=== PATIENT | female | born 1970 | race Two or more races ===

== ENCOUNTER 2019-08-30 00:16 | Inpatient (IN) | payer OTHER ==
[~2019-08-30] VITALS: Ht 165.1 cm; Wt 79.1 kg
[2019-08-30] VITALS (8 sets, daily range): BP systolic 110–140; BP diastolic 62–100
[~2019-08-30 00:16] MED LIST: PREN1TAB52 PO
[2019-08-30] MEDS ORDERED: FURO40 PO (00:26)
[2019-08-30] MEDS ORDERED: KDUR20 PO (00:26)
[2019-08-30] MEDS ORDERED: LORA-1000 PO (00:26)
[2019-08-30] MEDS ORDERED: RIVA20TA PO (00:26)
[2019-08-30 01:19] LABS: ANION GAP 8 mmol/L (8-16); CALCIUM, TOTAL 8.9 mg/dL (8.8-10.5); CARBON DIOXIDE 28 mmol/L (22-29); CHLORIDE 105 mmol/L (98-107); CREATININE 1.34 mg/dL (0.60-1.30); GLOMERULAR FILTR. RATE CALC 42 mL/min (>60); GLUCOSE,RANDOM 82 mg/dL (70-110); POTASSIUM 3.7 mmol/L (3.5-5.1); SODIUM SERUM 141 mmol/L (136-145); UREA NITROGEN, BLOOD 29 mg/dL (7-18)
[2019-08-30 01:23] LABS: INR 2.3 (0.9-1.1); PROTHROMBIN TIME 23.7 SEC (9.4-11.6)
[2019-08-30 01:40] LABS: B-TYPE NATRIURETIC PEPTIDE 848 pg/mL (0-100)
[2019-08-30 01:45] LABS: ALANINE AMINOTRANSFERASE 44 U/L (12-78); ALKALINE PHOSPHATASE 116 U/L (46-116); ASPARTATE AMINOTRANSFERASE 71 U/L (15-37); BILIRUBIN,TOTAL 1.5 mg/dL (0.1-1.0); CREATINE KINASE, TOTAL ONLY 207 U/L (26-192); HCG,QUANTITATIVE < 1 mIU/mL (0-6); TOTAL PROTEIN, SERUM 7.3 g/dL (6.4-8.2)
[2019-08-30] MEDS ORDERED: LORazepam 1 MG TABLET PO ONE (02:00)
[2019-08-30 02:01] LABS: APPEARANCE,URINE CLOUDY (CLEAR); BILIRUBIN,URINE NEGATIVE (NEGATIVE); GLUCOSE, URINE (UA) NEGATIVE (NEGATIVE); KETONES,URINE NEGATIVE (NEGATIVE); LEUKOCYTE ESTERASE ,URINE SMALL (NEGATIVE); NITRATE,URINE NEGATIVE (NEGATIVE); OCCULT BLOOD,URINE SMALL (NEGATIVE); PH,URINE 6.5 (5.0-8.0); PROTEIN,URINE POS 1+ (NEGATIVE)
[2019-08-30 02:12] LABS: BACTERIA,URINE Few /HPF (None Seen); RBC,URINE 0-2 /HPF (0-2); SQUAMOUS EPITHELIAL CELL,UR Many /LPF (None Seen)
[2019-08-30] MEDS ORDERED: IOVERSOL 350 MG/ML 100 ML VIAL ONE (02:19)
[2019-08-30] MEDS ORDERED: SODIUM CHLORIDE 0.9% 100 ML ONE (02:20)
[2019-08-30 02:22] LABS: BASOPHILS % (AUTO) 1.4 % (0.0-2.0); EOSINOPHILS % (AUTO) 1.2 % (1.0-6.0); HEMATOCRIT 36.2 % (36-46); HEMOGLOBIN 11.1 g/dL (12.0-16.0); LYMPHOCYTES # (AUTO) 1.5 K/uL (1.0-4.8); LYMPHOCYTES % (AUTO) 20.8 % (22.0-44.0); MEAN CORPUSCULAR HEMOGLOBIN 22.3 pg (26.0-34.0); MEAN CORPUSCULAR HGB CONC 30.8 G/dL (31.0-37.0); MEAN CORPUSCULAR VOLUME 73 fL (80-100); MONOCYTES # (AUTO) 0.7 K/uL (0.1-1.0); MONOCYTES % (AUTO) 9.5 % (2.0-9.0); NEUTROPHILS % (AUTO) 67.1 % (40.0-70.0); RED BLOOD CELL COUNT(AUTO) 4.99 MIL/uL (4.00-5.20); RED CELL DISTRIBUTION WIDTH 45.7 % (11.5-14.5)
[2019-08-30 02:43] LABS: PLATELET MORPHOLOGY COMMENT GIANT PLTS PRESENT
[2019-08-30 02:45] LABS: PLATELET COUNT (AUTO) 444 K/uL (150-450)
[2019-08-30] MEDS ORDERED: HEPARIN SODIUM,PORCINE 5,000 UNITS/ML VIAL IVP PRN ×4 (04:30→11:30)
[2019-08-30] MEDS ORDERED: HEPARIN SODIUM 25000 UNITS/D5W 250 ML IV PRN ×2 (04:30)
[2019-08-30] MEDS ORDERED: HEPARIN SODIUM,PORCINE 5,000 UNITS/ML VIAL IVP ONE ×2 (04:30→04:45)
[2019-08-30] MEDS ORDERED: ACETAMINOPHEN 325 MG TABLET PO PRN (04:45)
[2019-08-30] MEDS ORDERED: ONDANSETRON HCL 4 MG/2 ML VIAL IVP PRN (04:45)
[2019-08-30] MEDS ORDERED: 0.9% SODIUM CHLORIDE 10 ML SYRINGE IVP PRN (04:45)
[2019-08-30] MEDS ORDERED: INFLUENZA VIRUS VACCINE QVS 2019-20 (3YR+)/PF 60 MCG/0.5 ML SYRINGE IM ONE (07:30)
[2019-08-30] MEDS ORDERED: PNEUMOCOCCAL VACCINE POLYVALENT 0.5 ML VIAL [PPSV23] IM ONE (07:30)
[2019-08-30] MEDS ORDERED: BISACODYL 10 MG RECTAL RECTAL SUPPOSITORY PR PRN (11:30)
[2019-08-30] MEDS ORDERED: ZOLPIDEM TARTRATE 5 MG TABLET PO PRN (11:30)
[2019-08-30] MEDS ORDERED: MORPHINE SULFATE 2 MG/ML SYRINGE IVP PRN (11:30)
[2019-08-30] MEDS ORDERED: MAGNESIUM HYDROXIDE SUSPENSION 30 ML UDCUP PO PRN (11:30)
[2019-08-30 11:31] LABS: BASOPHILS % (AUTO) 0.8 % (0.0-2.0); EOSINOPHILS % (AUTO) 2.4 % (1.0-6.0); HEMATOCRIT 32.7 % (36-46); HEMOGLOBIN 10.1 g/dL (12.0-16.0); LYMPHOCYTES # (AUTO) 2.2 K/uL (1.0-4.8); LYMPHOCYTES % (AUTO) 28.9 % (22.0-44.0); MEAN CORPUSCULAR HEMOGLOBIN 22.5 pg (26.0-34.0); MEAN CORPUSCULAR HGB CONC 30.9 G/dL (31.0-37.0); MEAN CORPUSCULAR VOLUME 73 fL (80-100); MONOCYTES # (AUTO) 0.9 K/uL (0.1-1.0); MONOCYTES % (AUTO) 11.2 % (2.0-9.0); NEUTROPHILS # (AUTO) 4.3 K/uL (1.8-7.7); NEUTROPHILS % (AUTO) 56.7 % (40.0-70.0); RED BLOOD CELL COUNT(AUTO) 4.48 MIL/uL (4.00-5.20); RED CELL DISTRIBUTION WIDTH 45.2 % (11.5-14.5)
[2019-08-30] MEDS: LORazepam 1 MG TABLET PO SCH ×2 (12:48→20:56)
[2019-08-30] MEDS: FUROSEMIDE 40 MG TABLET PO SCH (12:48)
[2019-08-30] MEDS: POTASSIUM CHLORIDE 20 MEQ ER TABLET PO SCH (12:48)
[2019-08-30 13:47] LABS: PLATELET COUNT (AUTO) 447 K/uL (150-450)
[2019-08-30 15:25] LABS: INR 1.8 (0.9-1.1); PROTHROMBIN TIME 18.1 SEC (9.4-11.6)
[2019-08-30] MEDS ORDERED: HEPARIN SODIUM,PORCINE 5,000 UNITS/ML VIAL SQ SCH (16:00)
[2019-08-30] MEDS: DOCUSATE SODIUM 100 MG CAPSULE PO SCH (20:56)
[2019-08-30] MEDS: HYDROCODONE/ACETAMINOPHEN 5-325 MG TABLET PO PRN (20:58)
[2019-08-31] VITALS: BP_SYST 117; BP_SYST 135; BP_DIAS 82; BP_DIAS 97
[2019-08-31 04:18] VITALS: BP 129/58
[2019-08-31] MEDS: ACETAMINOPHEN 325 MG TABLET PO PRN (04:42)
[2019-08-31] MEDS: HEPARIN SODIUM 25000 UNITS/D5W 250 ML IV PRN ×3 (05:54→16:48)
[2019-08-31 06:32] LABS: EOSINOPHILS % (AUTO) 1.1 % (1.0-6.0); HEMATOCRIT 33.4 % (36-46); HEMOGLOBIN 10.6 g/dL (12.0-16.0); LYMPHOCYTES # (AUTO) 1.6 K/uL (1.0-4.8); LYMPHOCYTES % (AUTO) 22.4 % (22.0-44.0); MEAN CORPUSCULAR HEMOGLOBIN 23.5 pg (26.0-34.0); MEAN CORPUSCULAR HGB CONC 31.7 G/dL (31.0-37.0); MEAN CORPUSCULAR VOLUME 74 fL (80-100); MONOCYTES # (AUTO) 0.6 K/uL (0.1-1.0); MONOCYTES % (AUTO) 8.6 % (2.0-9.0); NEUTROPHILS # (AUTO) 4.8 K/uL (1.8-7.7); NEUTROPHILS % (AUTO) 66.9 % (40.0-70.0); PLATELET COUNT (AUTO) 450 K/uL (150-450); RED BLOOD CELL COUNT(AUTO) 4.51 MIL/uL (4.00-5.20); RED CELL DISTRIBUTION WIDTH 45.5 % (11.5-14.5)
[2019-08-31 06:51] LABS: ALBUMIN 2.5 g/dL (3.4-5.0); BILIRUBIN,TOTAL 1.2 mg/dL (0.1-1.0); CALCIUM, TOTAL 8.1 mg/dL (8.8-10.5); CREATININE 0.98 mg/dL (0.60-1.30); POTASSIUM 3.7 mmol/L (3.5-5.1); TOTAL PROTEIN, SERUM 6.4 g/dL (6.4-8.2)
[2019-08-31 07:30] VITALS: BP 128/86
[2019-08-31] MEDS: FUROSEMIDE 40 MG TABLET PO SCH (08:16)
[2019-08-31] MEDS: POTASSIUM CHLORIDE 20 MEQ ER TABLET PO SCH (08:16)
[2019-08-31] MEDS: DOCUSATE SODIUM 100 MG CAPSULE PO SCH ×2 (08:16→20:32)
[2019-08-31] MEDS: PANTOPRAZOLE SODIUM 40 MG DR TABLET PO SCH (08:16)
[2019-08-31] MEDS: LORazepam 1 MG TABLET PO SCH ×2 (08:49→20:32)
[2019-08-31 11:14] VITALS: BP 126/82
[2019-08-31 12:09] LABS: MAGNESIUM 1.8 mg/dL (1.80-2.40); PHOSPHORUS 3.1 mg/dL (2.5-4.9)
[2019-08-31] MEDS: HYDROCORTISONE 1% 30 GM OINTMENT TP SCH ×2 (12:44→20:32)
[2019-08-31] MEDS ORDERED: *CLINICAL-WARFARIN SODIUM DOSING CLINICAL ONE (14:30)
[2019-08-31 16:22] LABS: INR 1.2 (0.9-1.1); PROTHROMBIN TIME 12.5 SEC (9.4-11.6)
[2019-08-31 16:30] VITALS: BP 114/81
[2019-08-31] MEDS ORDERED: WARFARIN SODIUM-INR 2.0-3.0-RX DOSING PER PROTOCOL PO PRN (16:45)
[2019-08-31] MEDS ORDERED: WARFARIN SODIUM 5 MG TABLET PO ONE (17:00)
[2019-08-31] MEDS: HYDROCODONE/ACETAMINOPHEN 5-325 MG TABLET PO PRN (17:17)
[2019-08-31 20:31] VITALS: BP 120/85
[2019-08-31] MEDS: ONDANSETRON HCL 4 MG/2 ML VIAL IVP PRN (22:40)
[2019-09-01] MEDS: ACETAMINOPHEN 325 MG TABLET PO PRN ×3 (00:03→22:15)
[2019-09-01 00:15] VITALS: BP 112/72
[2019-09-01 07:35] VITALS: BP 118/74
[2019-09-01] MEDS: PANTOPRAZOLE SODIUM 40 MG DR TABLET PO SCH (08:33)
[2019-09-01] MEDS: FUROSEMIDE 40 MG TABLET PO SCH (08:33)
[2019-09-01] MEDS: LORazepam 1 MG TABLET PO SCH ×2 (08:33→22:11)
[2019-09-01] MEDS: POTASSIUM CHLORIDE 20 MEQ ER TABLET PO SCH (08:34)
[2019-09-01] MEDS: DOCUSATE SODIUM 100 MG CAPSULE PO SCH ×2 (08:35→21:00)
[2019-09-01 08:55] LABS: INR 1.4 (0.9-1.1); PROTHROMBIN TIME 14.3 SEC (9.4-11.6)
[2019-09-01] MEDS: HYDROCORTISONE 1% 30 GM OINTMENT TP SCH ×2 (09:00→22:11)
[2019-09-01] MEDS: HEPARIN SODIUM 25000 UNITS/D5W 250 ML IV PRN (11:48)
[2019-09-01 11:50] VITALS: BP 128/74
[2019-09-01 15:48] VITALS: BP 122/80
[2019-09-01 15:57] LABS: OCCULT BLOOD,GASTRIC FLUID POSITIVE (NEGATIVE)
[2019-09-01] MEDS ORDERED: LOPERAMIDE HCL 2 MG CAPSULE PO PRN (16:30)
[2019-09-01] MEDS ORDERED: WARFARIN SODIUM 7.5 MG TABLET PO ONE (17:00)
[2019-09-01 17:02] LABS: INR 1.7 (0.9-1.1); PROTHROMBIN TIME 16.9 SEC (9.4-11.6)
[2019-09-01] MEDS: ONDANSETRON HCL 4 MG/2 ML VIAL IVP PRN (19:45)
[2019-09-01 20:20] VITALS: BP 123/61
[2019-09-01 23:33] VITALS: BP 116/71
[2019-09-02 04:14] VITALS: BP 111/77
[2019-09-02 06:55] LABS: INR 2.3 (0.9-1.1); PROTHROMBIN TIME 23.4 SEC (9.4-11.6)
[2019-09-02 07:41] VITALS: BP 126/87
[2019-09-02] MEDS: HYDROCORTISONE 1% 30 GM OINTMENT TP SCH (08:00)
[2019-09-02] MEDS: FUROSEMIDE 40 MG TABLET PO SCH (08:00)
[2019-09-02] MEDS: LORazepam 1 MG TABLET PO SCH (08:00)
[2019-09-02] MEDS: POTASSIUM CHLORIDE 20 MEQ ER TABLET PO SCH (08:00)
[2019-09-02] MEDS: PANTOPRAZOLE SODIUM 40 MG DR TABLET PO SCH (08:01)
[2019-09-02] MEDS: ACETAMINOPHEN 325 MG TABLET PO PRN (08:12)
[2019-09-02] MEDS: DOCUSATE SODIUM 100 MG CAPSULE PO SCH (08:16)
[2019-09-02] MEDS ORDERED: WARF5 PO (10:31)
[2019-09-10] MEDS ORDERED: SILD20TA2 PO (09:23)
== END 2019-09-02 12:05 | disposition home or self-care (01) | DRG 207 ==
LOC: EMS 00:17 → 5N 04:54
PROVIDERS: ADMIT Internal Medicine; ATTEND Internal Medicine
DX: I27.20 Pulmonary hypertension, unspecified (principal); I26.99 Other pulmonary embolism without acute cor pulmonale; I07.1 Rheumatic tricuspid insufficiency; I50.32 Chronic diastolic (congestive) heart failure; E78.5 Hyperlipidemia, unspecified; I49.3 Ventricular premature depolarization; J44.9 Chronic obstructive pulmonary disease, unspecified; F41.9 Anxiety disorder, unspecified; Z86.718 Personal history of other venous thrombosis and embolism; Z86.11 Personal history of tuberculosis; Z90.81 Acquired absence of spleen
CPT/HCPCS: 70450; 70486; 71275; 78582; 82271; 83735; 84100; 87081; 93005; 93306; 96365; 99291; J1644; J2270; J2405; J7050

== ENCOUNTER 2019-09-04 04:51 | Inpatient (IN) | payer OTHER ==
[~2019-09-04] VITALS: Ht 165.1 cm; Wt 83.4 kg
[~2019-09-04 04:51] MED LIST changes: +MAA ALBUMIN AGGREGATED TC99M/UD<10MCL ISOTOPE 1 EA INJ INJ ONE; +PENTETATE DTPA TC99M/MCL ISOTOPE 1 EA INJ INJ ONE; -PREN1TAB52 PO; +WARF5 PO
[2019-09-04] MEDS ORDERED: SODIUM CHLORIDE 0.9% 1,000 ML IV ONE (05:45)
[2019-09-04 06:01] LABS: BASOPHILS % (AUTO) 1.1 % (0.0-2.0); HEMOGLOBIN 10.6 g/dL (12.0-16.0); LYMPHOCYTES # (AUTO) 1.8 K/uL (1.0-4.8); LYMPHOCYTES % (AUTO) 23.5 % (22.0-44.0); MEAN CORPUSCULAR HEMOGLOBIN 22.9 pg (26.0-34.0); MEAN CORPUSCULAR HGB CONC 31.2 G/dL (31.0-37.0); MEAN CORPUSCULAR VOLUME 73 fL (80-100); MONOCYTES # (AUTO) 0.9 K/uL (0.1-1.0); MONOCYTES % (AUTO) 12.2 % (2.0-9.0); NEUTROPHILS # (AUTO) 4.6 K/uL (1.8-7.7); NEUTROPHILS % (AUTO) 61.2 % (40.0-70.0); PLATELET COUNT (AUTO) 374 K/uL (150-450); RED BLOOD CELL COUNT(AUTO) 4.65 MIL/uL (4.00-5.20); RED CELL DISTRIBUTION WIDTH 45.5 % (11.5-14.5)
[2019-09-04 06:14] LABS: INR 2.3 (0.9-1.1); PROTHROMBIN TIME 23.9 SEC (9.4-11.6)
[2019-09-04 06:16] LABS: CALCIUM, TOTAL 9.1 mg/dL (8.8-10.5); CREATININE 1.02 mg/dL (0.60-1.30); POTASSIUM 4.1 mmol/L (3.5-5.1)
[2019-09-04 06:21] LABS: ALBUMIN 2.8 g/dL (3.4-5.0); BILIRUBIN,TOTAL 1.2 mg/dL (0.1-1.0); TOTAL PROTEIN, SERUM 7.1 g/dL (6.4-8.2)
[2019-09-04] MEDS ORDERED: FURO40 PO (06:21)
[2019-09-04] MEDS ORDERED: ONDANSETRON HCL 4 MG/2 ML VIAL IVP ONE (06:45)
[2019-09-04] MEDS ORDERED: ACETAMINOPHEN 500 MG TABLET PO ONE (06:45)
[2019-09-04] MEDS ORDERED: PIPERACILLIN/TAZO 3.375 GM/D5W 50 ML IV ONE (07:30)
[2019-09-04] MEDS ORDERED: VANCOMYCIN HCL 1 GM/D5% WATER 200 ML IV ONE (07:30)
[2019-09-04] MEDS ORDERED: AZITHROMYCIN 500 MG/NS 250 ML IV ONE (07:30)
[2019-09-04] MEDS ORDERED: 0.9% SODIUM CHLORIDE 10 ML SYRINGE IVP PRN ×2 (08:30→08:45)
[2019-09-04] MEDS ORDERED: *CLINICAL-WARFARIN SODIUM DOSING CLINICAL ONE (08:30)
[2019-09-04] MEDS ORDERED: ACETAMINOPHEN 325 MG TABLET PO PRN ×2 (08:30→08:45)
[2019-09-04] MEDS ORDERED: BISACODYL 10 MG RECTAL RECTAL SUPPOSITORY PR PRN (08:45)
[2019-09-04] MEDS ORDERED: MAGNESIUM HYDROXIDE SUSPENSION 30 ML UDCUP PO PRN (08:45)
[2019-09-04] MEDS ORDERED: IPRATROPIUM BROMIDE 0.5 MG/2.5 ML NEB SOLUTION NEB PRN (08:45)
[2019-09-04] MEDS ORDERED: ALBUTEROL SULFATE 2.5 MG/0.5 ML NEB SOLUTION NEB PRN (08:45)
[2019-09-04] MEDS ORDERED: ONDANSETRON HCL 4 MG/2 ML VIAL IVP PRN (08:45)
[2019-09-04 10:33] VITALS: BP 117/78
[2019-09-04] MEDS: FUROSEMIDE 40 MG TABLET PO SCH (13:49)
[2019-09-04] MEDS: PANTOPRAZOLE SODIUM 40 MG DR TABLET PO SCH (13:49)
[2019-09-04] MEDS: LORazepam 1 MG TABLET PO SCH ×2 (14:44→21:40)
[2019-09-04 15:50] VITALS: BP 140/80
[2019-09-04] MEDS ORDERED: WARFARIN SODIUM 3 MG TABLET PO SCH (17:00)
[2019-09-04] MEDS ORDERED: WARFARIN SODIUM 5 MG TABLET PO SCH (17:00)
[2019-09-04] MEDS: OxyCODONE HCL/ACETAMINOPHEN 5-325 MG TABLET PO PRN (17:06)
[2019-09-04 19:36] VITALS: BP 120/82
[2019-09-04 23:26] VITALS: BP 106/47
[2019-09-05 05:24] VITALS: BP 108/75
[2019-09-05 06:40] LABS: BASOPHILS % (AUTO) 1.1 % (0.0-2.0); EOSINOPHILS % (AUTO) 3.5 % (1.0-6.0); HEMATOCRIT 32.3 % (36-46); HEMOGLOBIN 10.3 g/dL (12.0-16.0); LYMPHOCYTES # (AUTO) 1.7 K/uL (1.0-4.8); LYMPHOCYTES % (AUTO) 27.9 % (22.0-44.0); MEAN CORPUSCULAR HEMOGLOBIN 23.5 pg (26.0-34.0); MEAN CORPUSCULAR HGB CONC 31.9 G/dL (31.0-37.0); MEAN CORPUSCULAR VOLUME 74 fL (80-100); MONOCYTES # (AUTO) 0.9 K/uL (0.1-1.0); MONOCYTES % (AUTO) 13.9 % (2.0-9.0); NEUTROPHILS # (AUTO) 3.3 K/uL (1.8-7.7); NEUTROPHILS % (AUTO) 53.6 % (40.0-70.0); PLATELET COUNT (AUTO) 387 K/uL (150-450); RED BLOOD CELL COUNT(AUTO) 4.39 MIL/uL (4.00-5.20); RED CELL DISTRIBUTION WIDTH 46.2 % (11.5-14.5)
[2019-09-05 06:45] LABS: INR 2.4 (0.9-1.1); PROTHROMBIN TIME 24.8 SEC (9.4-11.6)
[2019-09-05 06:58] LABS: ALBUMIN 2.5 g/dL (3.4-5.0); BILIRUBIN,TOTAL 0.7 mg/dL (0.1-1.0); CALCIUM, TOTAL 8.6 mg/dL (8.8-10.5); CREATININE 1.03 mg/dL (0.60-1.30); POTASSIUM 3.8 mmol/L (3.5-5.1); TOTAL PROTEIN, SERUM 6.5 g/dL (6.4-8.2)
[2019-09-05] MEDS: OxyCODONE HCL/ACETAMINOPHEN 5-325 MG TABLET PO PRN ×2 (07:41→21:10)
[2019-09-05 07:51] VITALS: BP 126/76
[2019-09-05] MEDS: LORazepam 1 MG TABLET PO SCH ×3 (08:28→21:10)
[2019-09-05] MEDS: FUROSEMIDE 40 MG TABLET PO SCH (08:28)
[2019-09-05] MEDS: DOCUSATE SODIUM 100 MG CAPSULE PO PRN ×2 (08:28→21:09)
[2019-09-05] MEDS: PANTOPRAZOLE SODIUM 40 MG DR TABLET PO SCH (08:29)
[2019-09-05] MEDS: DOXYCYCLINE HYCLATE 100 MG CAPSULE PO SCH ×2 (09:00→21:16)
[2019-09-05] MEDS: MORPHINE SULFATE 4 MG/ML SYRINGE IVP PRN (09:38)
[2019-09-05 11:55] VITALS: BP 137/71
[2019-09-05 16:08] VITALS: BP 122/89
[2019-09-05] MEDS ORDERED: WARFARIN SODIUM 1 MG TABLET PO SCH (17:00)
[2019-09-05 20:28] VITALS: BP 128/77
[2019-09-05] MEDS: HYDROCORTISONE 1% 30 GM OINTMENT TP PRN (21:15)
[2019-09-05 23:55] VITALS: BP 109/56
[2019-09-06 04:15] VITALS: BP 102/67
[2019-09-06 06:54] LABS: BASOPHILS % (AUTO) 0.8 % (0.0-2.0); EOSINOPHILS % (AUTO) 2.9 % (1.0-6.0); HEMATOCRIT 33.6 % (36-46); HEMOGLOBIN 10.5 g/dL (12.0-16.0); LYMPHOCYTES # (AUTO) 2.4 K/uL (1.0-4.8); LYMPHOCYTES % (AUTO) 28.3 % (22.0-44.0); MEAN CORPUSCULAR HEMOGLOBIN 22.8 pg (26.0-34.0); MEAN CORPUSCULAR HGB CONC 31.1 G/dL (31.0-37.0); MEAN CORPUSCULAR VOLUME 73 fL (80-100); MONOCYTES # (AUTO) 1.2 K/uL (0.1-1.0); MONOCYTES % (AUTO) 14.3 % (2.0-9.0); NEUTROPHILS # (AUTO) 4.5 K/uL (1.8-7.7); NEUTROPHILS % (AUTO) 53.7 % (40.0-70.0); PLATELET COUNT (AUTO) 415 K/uL (150-450); RED BLOOD CELL COUNT(AUTO) 4.59 MIL/uL (4.00-5.20); RED CELL DISTRIBUTION WIDTH 45.2 % (11.5-14.5)
[2019-09-06 07:00] LABS: INR 2.1 (0.9-1.1); PROTHROMBIN TIME 21.2 SEC (9.4-11.6)
[2019-09-06 07:19] LABS: ANION GAP 7 mmol/L (8-16); CALCIUM, TOTAL 8.4 mg/dL (8.8-10.5); CARBON DIOXIDE 26 mmol/L (22-29); CHLORIDE 107 mmol/L (98-107); CREATININE 0.96 mg/dL (0.60-1.30); GLOMERULAR FILTR. RATE CALC > 60 mL/min (>60); GLUCOSE,RANDOM 55 mg/dL (70-110); POTASSIUM 3.9 mmol/L (3.5-5.1); SODIUM SERUM 140 mmol/L (136-145); UREA NITROGEN, BLOOD 20 mg/dL (7-18)
[2019-09-06 07:45] VITALS: BP 103/82
[2019-09-06 08:48] VITALS: BP 130/87
[2019-09-06] MEDS: FUROSEMIDE 40 MG TABLET PO SCH (08:55)
[2019-09-06] MEDS: PANTOPRAZOLE SODIUM 40 MG DR TABLET PO SCH (08:55)
[2019-09-06] MEDS: LORazepam 1 MG TABLET PO SCH ×3 (08:55→21:08)
[2019-09-06] MEDS: DOXYCYCLINE HYCLATE 100 MG CAPSULE PO SCH ×2 (08:55→21:08)
[2019-09-06] MEDS: MORPHINE SULFATE 4 MG/ML SYRINGE IVP PRN (08:56)
[2019-09-06 11:50] VITALS: BP 126/92
[2019-09-06 12:32] LABS: GLUCOMETER DEV NAME(LOC) 5N.1; GLUCOSE,POINT OF CARE 110 MG/DL (70-110)
[2019-09-06] MEDS ORDERED: FURO40 PO (12:37)
[2019-09-06] MEDS ORDERED: ACET-3207 PO (12:38)
[2019-09-06] MEDS: HYDROCORTISONE 1% 30 GM OINTMENT TP PRN (13:21)
[2019-09-06 16:50] VITALS: BP 115/69
[2019-09-06] MEDS ORDERED: WARFARIN SODIUM 3 MG TABLET PO SCH (17:00)
[2019-09-06 19:13] VITALS: BP 119/77
[2019-09-06] MEDS: SILDENAFIL CITRATE 20 MG TABLET PO SCH (21:08)
[2019-09-07 00:01] VITALS: BP 158/69
[2019-09-07 04:18] LABS: AMPHET/METH SCREEN,URINE NEGATIVE (NEGATIVE); BARBITURATE SCREEN, URINE NEGATIVE (NEGATIVE); BENZODIAZEPINES SCREEN,URINE NEGATIVE (NEGATIVE); CANNABINOID SCREEN,URINE NEGATIVE (NEGATIVE); COCAINE SCREEN,URINE NEGATIVE (NEGATIVE); METHADONE SCREEN, URINE NEGATIVE (NEGATIVE); OPIATE SCREEN,URINE NEGATIVE (NEGATIVE); PHENCYCLIDINE SCREEN,URINE NEGATIVE (NEGATIVE)
[2019-09-07 04:51] VITALS: BP 135/65
[2019-09-07 06:37] LABS: INR 1.8 (0.9-1.1); PROTHROMBIN TIME 18.2 SEC (9.4-11.6)
[2019-09-07 07:36] VITALS: BP 124/49
[2019-09-07] MEDS: LORazepam 1 MG TABLET PO SCH ×3 (07:49→20:42)
[2019-09-07] MEDS: PANTOPRAZOLE SODIUM 40 MG DR TABLET PO SCH (07:50)
[2019-09-07] MEDS: FUROSEMIDE 40 MG TABLET PO SCH (07:50)
[2019-09-07] MEDS: DOXYCYCLINE HYCLATE 100 MG CAPSULE PO SCH ×2 (07:51→20:42)
[2019-09-07] MEDS: SILDENAFIL CITRATE 20 MG TABLET PO SCH ×3 (07:51→20:42)
[2019-09-07] MEDS: HYDROCORTISONE 1% 30 GM OINTMENT TP PRN ×2 (08:30→15:59)
[2019-09-07] MEDS: MORPHINE SULFATE 4 MG/ML SYRINGE IVP PRN (08:45)
[2019-09-07 11:32] VITALS: BP 100/62
[2019-09-07] MEDS ORDERED: WARFARIN SODIUM 2 MG TABLET PO ONE (15:45)
[2019-09-07] MEDS: WARFARIN SODIUM 2 MG TABLET PO SCH (16:37)
[2019-09-07 20:33] VITALS: BP 99/51
[2019-09-07] MEDS ORDERED: SODIUM CHLORIDE 3% 15 ML NEB SOLUTION NEB ONE (20:49)
[2019-09-08] VITALS: BP 112/69
[2019-09-08] MEDS: OxyCODONE HCL/ACETAMINOPHEN 5-325 MG TABLET PO PRN
[2019-09-08 03:39] VITALS: BP 107/67
[2019-09-08] MEDS: MORPHINE SULFATE 4 MG/ML SYRINGE IVP PRN (05:08)
[2019-09-08 07:18] LABS: INR 1.8 (0.9-1.1); PROTHROMBIN TIME 18.3 SEC (9.4-11.6)
[2019-09-08 07:42] VITALS: BP 125/47
[2019-09-08] MEDS: LORazepam 1 MG TABLET PO SCH ×3 (08:02→20:22)
[2019-09-08] MEDS: FUROSEMIDE 40 MG TABLET PO SCH (08:02)
[2019-09-08] MEDS: SILDENAFIL CITRATE 20 MG TABLET PO SCH ×3 (08:02→20:22)
[2019-09-08] MEDS: DOXYCYCLINE HYCLATE 100 MG CAPSULE PO SCH ×2 (08:02→20:22)
[2019-09-08] MEDS: PANTOPRAZOLE SODIUM 40 MG DR TABLET PO SCH (08:02)
[2019-09-08] MEDS: HYDROCORTISONE 1% 30 GM OINTMENT TP PRN (08:03)
[2019-09-08 11:44] VITALS: BP 104/63
[2019-09-08] MEDS ORDERED: SODIUM CHLORIDE 3% 15 ML NEB SOLUTION NEB ONE ×3 (15:01→21:14)
[2019-09-08 16:12] VITALS: BP 113/49
[2019-09-08] MEDS: WARFARIN SODIUM 2 MG TABLET PO SCH (16:49)
[2019-09-08] MEDS ORDERED: WARFARIN SODIUM 2 MG TABLET PO ONE (17:00)
[2019-09-08 20:15] VITALS: BP 114/71
[2019-09-08] MEDS ORDERED: ZOLPIDEM TARTRATE 10 MG TABLET PO PRN (22:30)
[2019-09-09 00:36] VITALS: BP 121/69
[2019-09-09 04:20] VITALS: BP 128/75
[2019-09-09] MEDS: MORPHINE SULFATE 4 MG/ML SYRINGE IVP PRN (04:24)
[2019-09-09 07:04] LABS: INR 2.2 (0.9-1.1); PROTHROMBIN TIME 22.2 SEC (9.4-11.6)
[2019-09-09] MEDS ORDERED: SODIUM CHLORIDE 3% 15 ML NEB SOLUTION NEB ONE ×2 (07:47→08:33)
[2019-09-09 09:23] VITALS: BP 102/60
[2019-09-09] MEDS: DOXYCYCLINE HYCLATE 100 MG CAPSULE PO SCH (09:30)
[2019-09-09] MEDS: LORazepam 1 MG TABLET PO SCH (09:30)
[2019-09-09] MEDS: SILDENAFIL CITRATE 20 MG TABLET PO SCH (09:30)
[2019-09-09] MEDS: FUROSEMIDE 40 MG TABLET PO SCH (09:30)
[2019-09-09] MEDS: PANTOPRAZOLE SODIUM 40 MG DR TABLET PO SCH (09:30)
[2019-09-09 12:45] VITALS: BP 103/66
[2019-09-09] MEDS ORDERED: WARFARIN SODIUM 5 MG TABLET PO ONE (17:00)
[2019-09-10] MEDS ORDERED: SILD20TA2 PO (09:23)
== END 2019-09-09 16:45 | disposition home or self-care (01) | DRG 134 ==
LOC: EMS 04:53 → 5N 08:03
PROVIDERS: ADMIT Internal Medicine; ATTEND Internal Medicine
DX: I26.99 Other pulmonary embolism without acute cor pulmonale (principal); J18.9 Pneumonia, unspecified organism; I27.29 Other secondary pulmonary hypertension; I50.810 Right heart failure, unspecified; F41.9 Anxiety disorder, unspecified; Z79.01 Long term (current) use of anticoagulants; Z86.711 Personal history of pulmonary embolism; Z86.11 Personal history of tuberculosis; Z86.718 Personal history of other venous thrombosis and embolism; Z79.899 Other long term (current) drug therapy
CPT/HCPCS: 70450; 80307; 84145; 87081; 93005; 93308; 93970; 94640; 96365; 97116; 97162; J0456; J2270; J2405; J2543; J3370; J7030

== ENCOUNTER 2019-09-17 03:38 | Emergency (ER) | payer OTHER ==
[~2019-09-17] VITALS: Ht 165.1 cm; Wt 78.6 kg
[~2019-09-17 03:38] MED LIST changes: +ACET-3207 PO; +FURO40 PO; -MAA ALBUMIN AGGREGATED TC99M/UD<10MCL ISOTOPE 1 EA INJ INJ ONE; -PENTETATE DTPA TC99M/MCL ISOTOPE 1 EA INJ INJ ONE; +SILD20TA2 PO
[2019-09-17] MEDS ORDERED: LORA-1000 PO (04:40)
[2019-09-17] MEDS ORDERED: RIOC1TAB PO (04:40)
[2019-09-17] MEDS ORDERED: SILD20TA2 PO (04:45)
[2019-09-17 04:52] LABS: EOSINOPHILS % (AUTO) 2.9 % (1.0-6.0); HEMATOCRIT 32.3 % (36-46); HEMOGLOBIN 10.1 g/dL (12.0-16.0); LYMPHOCYTES # (AUTO) 1.5 K/uL (1.0-4.8); LYMPHOCYTES % (AUTO) 27.8 % (22.0-44.0); MEAN CORPUSCULAR HGB CONC 31.3 G/dL (31.0-37.0); MEAN CORPUSCULAR VOLUME 73 fL (80-100); MONOCYTES # (AUTO) 0.7 K/uL (0.1-1.0); MONOCYTES % (AUTO) 12.7 % (2.0-9.0); NEUTROPHILS # (AUTO) 2.9 K/uL (1.8-7.7); NEUTROPHILS % (AUTO) 54.6 % (40.0-70.0); PLATELET COUNT (AUTO) 448 K/uL (150-450); RED BLOOD CELL COUNT(AUTO) 4.41 MIL/uL (4.00-5.20)
[2019-09-17 05:00] LABS: ANION GAP 8 mmol/L (8-16); CALCIUM, TOTAL 9.1 mg/dL (8.8-10.5); CARBON DIOXIDE 23 mmol/L (22-29); CHLORIDE 106 mmol/L (98-107); CREATININE 0.93 mg/dL (0.60-1.30); GLOMERULAR FILTR. RATE CALC > 60 mL/min (>60); GLUCOSE,RANDOM 103 mg/dL (70-110); POTASSIUM 3.4 mmol/L (3.5-5.1); SODIUM SERUM 137 mmol/L (136-145); UREA NITROGEN, BLOOD 19 mg/dL (7-18)
[2019-09-17 05:02] LABS: B-TYPE NATRIURETIC PEPTIDE 542 pg/mL (0-100); INR 1.1 (0.9-1.1); PROTHROMBIN TIME 11.7 SEC (9.4-11.6)
[2019-09-17 05:11] LABS: PLATELET MORPHOLOGY COMMENT LARGE PLTS PRESENT
[2019-09-17 05:25] LABS: ALANINE AMINOTRANSFERASE 39 U/L (12-78); ALBUMIN 2.9 g/dL (3.4-5.0); ALKALINE PHOSPHATASE 143 U/L (46-116); ASPARTATE AMINOTRANSFERASE 54 U/L (15-37); BILIRUBIN,TOTAL 0.9 mg/dL (0.1-1.0); CREATINE KINASE, TOTAL ONLY 150 U/L (26-192); TOTAL PROTEIN, SERUM 7.5 g/dL (6.4-8.2)
[2019-09-17 06:21] VITALS: BP 131/77
== END 2019-09-17 06:46 | disposition home or self-care (01) ==
LOC: EMS 03:42
DX: G62.9 Polyneuropathy, unspecified (principal); I11.0 Hypertensive heart disease with heart failure; I50.9 Heart failure, unspecified; F41.9 Anxiety disorder, unspecified; Z98.890 Other specified postprocedural states; Z86.718 Personal history of other venous thrombosis and embolism; Z86.711 Personal history of pulmonary embolism; Z79.899 Other long term (current) drug therapy
CPT/HCPCS: 93005

== ENCOUNTER 2021-10-22 21:06 | Emergency (ER) | payer OTHER ==
[~2021-10-22] VITALS: Ht 165.1 cm; Wt 77.3 kg
[~2021-10-22 21:06] MED LIST changes: -ACET-3207 PO; +LORA-1000 PO; +RIOC1TAB PO; -WARF5 PO
[2021-10-22 21:10] VITALS: BP 142/79
[2021-10-22 22:32] LABS: APPEARANCE,URINE CLEAR (CLEAR); BILIRUBIN,URINE NEGATIVE (NEGATIVE); GLUCOSE, URINE (UA) NEGATIVE (NEGATIVE); KETONES,URINE NEGATIVE (NEGATIVE); LEUKOCYTE ESTERASE ,URINE NEGATIVE (NEGATIVE); NITRATE,URINE NEGATIVE (NEGATIVE); OCCULT BLOOD,URINE SMALL (NEGATIVE); PROTEIN,URINE 30-70 mg/dL (NEGATIVE); SPECIFIC GRAVITIY, URINE 1.028 (1.003-1.030); UROBILINOGEN,URINE <=1.0 mg/dL (<=1.0)
[2021-10-22 22:55] LABS: BACTERIA,URINE Few /HPF (None Seen); MUCUS,URINE Few LPF (None Seen); SQUAMOUS EPITHELIAL CELL,UR Rare /LPF (None Seen); WBC,URINE 0-2 /HPF (0-5)
[2021-10-23] MEDS ORDERED: SODIUM CHLORIDE 0.9% 1,000 ML IV ONE (01:45)
[2021-10-23] MEDS ORDERED: KETOROLAC TROMETHAMINE 30 MG/ML VIAL IVP ONE (01:45)
[2021-10-23] MEDS ORDERED: IBUP-2070 PO (02:42)
== END 2021-10-23 04:07 | disposition home or self-care (01) ==
LOC: EMS 21:22
DX: N20.9 Urinary calculus, unspecified (principal); F41.9 Anxiety disorder, unspecified; I27.20 Pulmonary hypertension, unspecified; I11.0 Hypertensive heart disease with heart failure; I50.9 Heart failure, unspecified; Z90.81 Acquired absence of spleen; Z87.09 Personal history of other diseases of the respiratory system; Z86.79 Personal history of other diseases of the circulatory system; Z98.890 Other specified postprocedural states
CPT/HCPCS: 74176; 81001; 96361; 96374; 99284; J1885; J7030